=== PATIENT | female | born 1980 | race Caucasian/White ===

== ENCOUNTER 2016-05-12 20:43 | Day surgery (SDC) | payer OTHER ==
--- NOTE | 2016-05-12 21:02 | PDOC ---
History of Present Illness - General Chief Complaint: Pain Stated Complaint: ABDOMINAL PAIN Time Seen by Provider: 05/12/16 20:59 History Source: Patient Exam Limitations: No Limitations - History of Present Illness Initial Comments: 05/12/16 21:57 This is a 35-year-old female who comes in complaining of lower abdominal pain constant and not progressive now 3 days. Patient denies any fevers or chills with it. Patient had a sore throat and upper respiratory tract symptoms earlier in the week for which she saw her primary care doctor and had a rapid strep done. The primary care doctor did not address the abdominal pain issues as per patient. Patient denies any vaginal discharge. She is sexually active has been with her partner for 10 years and denies any history of sexually transmitted diseases. Patient denies any dysuria, frequency, hematuria or flank pain. Patient said the pain is primarily suprapubic area with some radiation to the right lower quadrant area. Patient said last menstrual period was a little heavier than usual and otherwise was on time and earlier this month. Patient denies any nausea, vomiting or diarrhea. Patient does have some mild anorexia. PAST MEDICAL HISTORY: no significant history PAST SURGICAL HISTORY: no significant history FAMILY HISTORY: no pertinant history SOCIAL HISTORY: Pt lives with family and is employed. MEDICATIONS: reviewed ALLERGIES: As per nursing notes Review of Systems General: No fevers or chills, no weakness, no weight loss HEENT: No change in vision. No sore throat,. No ear pain CardioVascular: No chest pain or shortness of breath Respiratory:No cough, or wheezing. Gastrointestinal: no nausea, vomitting, diarrhea or constipation, No rectal bleeding Genitourinary: No dysuria, hematuria, or frequency Musculoskeletal: No joint or muscle pain or swelling Neurologic: No headache, vertigo, dizziness or loss of consciousness Psychiatric: nor depression Skin: No rashes or easy bruising Endocrine: no increased thirst or abnormal weight change Allergic: no skin or latex allergy All other systems reviewed and normal Exam: General: Well-nourished well-developed individual, no acute distress HEENT: Throat: Normal, tonsils normal, no erythema or exudate Neck: Supple, no meningeal signs, no lymphadenopathy Eyes::Pupils equal reactive and round, extraocular motion intact Chest: Nontender to palpation Cardiac: S1-S2 normal, regular rate and rhythm, no murmurs rubs or gallops Respiratory: Lungs clear to auscultation bilateral Abdomen: Abdomen soft with normal bowel sounds, there is some mild to moderate tenderness over the suprapubic and right lower quadrant area. There is no guarding or rebound. Bowel sounds are normal. Extremities: Warm, dry, no cyanosis, clubbing, or edema Skin: No rashes Neuro: Alert and oriented x3, nonfocal exam, grossly intact, normal gait Psych: Normal mood and affect 05/13/16 00:43 CT scan consistent with acute appendicitis. Assessment and plan: This is a 35-year-old female who comes in with abdominal pain constant for 4 days. Patient had a workup in the emergency room including a CAT scan. Patient CAT scan was positive for acute appendicitis. Dr. Villatoro was contacted and he will admit patient and take her to the OR in the morning. Patient was given Zosyn in the emergency room. 05/13/16 01:32 Past History - Past Medical History Allergies/Adverse Reactions: Allergies Allergy/AdvReac Type Severity Reaction Status Date / Time No Known Allergies Allergy Verified 09/28/15 00:03 Home Medications: Ambulatory Orders Multivitamins [Tab-A-Vit -] 1 tab PO DAILY 05/12/16 Kidney Stones: Yes - Psycho/Social/Smoking Cessation Hx Anxiety: No Suicidal Ideation: No Smoking History: Never smoked Have you smoked in the past 12 months: No Hx Alcohol Use: No Drug/Substance Use Hx: No Substance Use Type: None *Physical Exam - Vital Signs Last Vital Signs Temp Pulse Resp BP Pulse Ox 98.1 F 114 H 16 132/81 100 05/12/16 20:45 05/12/16 20:45 05/12/16 20:45 05/12/16 20:45 05/12/16 20:45 ED Treatment Course - LABORATORY CBC & Chemistry Diagram: 05/12/16 21:26 05/12/16 21:26 *DC/Admit/Observation/Transfer Diagnosis at time of Disposition: Acute appendicitis Qualifiers: Acute appendicitis type: unspecified acute appendicitis type Qualified Code(s) : K35.80 - Unspecified acute appendicitis - Discharge Dispostion Condition at time of disposition: Stable Admit: Yes
[2016-05-12 21:33] LABS: URINE APPEARANCE Clear; URINE BILIRUBIN Negative (NEGATIVE); URINE GLUCOSE (UA) Negative (NEGATIVE); URINE KETONE 2+ (NEGATIVE); URINE LEUK ESTERASE Negative (NEGATIVE); URINE NITRITE Negative (NEGATIVE); URINE PROTEIN Negative (NEGATIVE); URINE UROBILINOGEN 0.2 E.U/dl (0.2-1.0)
[2016-05-12 21:35] LABS: URINE BLOOD 1+ (NEGATIVE); URINE COLOR YELLOW
[2016-05-12 21:38] LABS: BASOPHIL 0.4 % (0-2.0); EOSINOPHIL 0.3 % (0-4.5); MCH 29.9 pg (25.7-33.7); MCHC 33.6 g/dl (32.0-36.0); MEAN CELL VOLUME 89.2 fl (80-96); MEAN PLT VOLUME 7.6 fl (7.5-11.1); NEUTROPHILS 79.5 % (42.8-82.8); PLATELET COUNT 178 K/MM3 (134-434); RDW 12.2 % (11.6-15.6); WHITE BLOOD COUNT 13.6 K/mm3 (4.0-10.0)
[2016-05-12 21:52] LABS: ALK PHOS 61 U/L (32-92); ANION GAP 11 (8-16); BILIRUBIN,TOTAL 1.2 mg/dl (0.2-1.0); CALCIUM 9.2 mg/dl (8.4-10.2); CO2 26 mmol/L (22-28); CREATININE 0.5 mg/dl (0.6-1.3); GLUCOSE,RANDOM 95 mg/dl (74-106); SGOT/AST 16 U/L (10-42); TOT PROT 6.9 g/dl (6.4-8.3)
[2016-05-12 22:04] LABS: SGPT/ALT 10 U/L (10-40)
[2016-05-12 23:26] LABS: PH,URINE 5.5 (4.5-8)
[2016-05-13] MEDS ORDERED: PIPERACILLIN/TAZOB 3.375 GM/50 ML PRE-DOCKED IV STA (00:45)
[2016-05-13] MEDS ORDERED: PIPERACILLIN/TAZOBACTAM 3.375 GM VIAL IVPB ONE (00:49)
[2016-05-13 03:51] VITALS: BMI 21.4
--- NOTE | 2016-05-13 07:33 | HP ---
Admitting History and Physical - Admission Chief Complaint: ABD pain x3 days. History of Present Illness: This is a 35-year-old female who comes in c/o lower abd pain 3 days. First started around her umbilicus and has migrated to [place]. She states she was recently seen by her PCP for a sore throat & URI. Admits to loss of appetite. A CT scan was performed in the ED and confirms acute appy. Denies n/v/f/c/d, CP, SOB or trauma. History Source: Patient Limitations to Obtaining History: No Limitations - Past Medical History ...LMP Comment: 05/04/16 ...: No (HAVE 1 Y/O CHILD) - Past Surgical History Past Surgical History: Yes: Stent (Right ureter secondary to stone in 2010) - Smoking History Smoking history: Never smoked Have you smoked in the past 12 months: No - Alcohol/Substance Use Hx Alcohol Use: No - Social History Usual Living Arrangement: Yes: With Spouse ADL: Independent History of Recent Travel: No Home Medications - Allergies Allergies/Adverse Reactions: Allergies Allergy/AdvReac Type Severity Reaction Status Date / Time No Known Allergies Allergy Verified 09/28/15 00:03 - Home Medications Home Medications: Ambulatory Orders Multivitamins [Tab-A-Vit -] 1 tab PO DAILY 05/12/16 Family Disease History - Family Disease History Family History: Denies Review of Systems - Review of Systems Constitutional: reports: No Symptoms Eyes: reports: No Symptoms HENT: reports: No Symptoms Neck: reports: No Symptoms Cardiovascular: denies: Chest Pain, Edema, Palpitations, Shortness of Breath Respiratory: denies: Cough, Hemoptysis, SOB, Wheezing Gastrointestinal: reports: Abdominal Pain. denies: Diarrhea, Melena, Nausea, Vomiting Genitourinary: denies: Burning, Discharge, Dysuria, Flank Pain, Hematuria, Pain Breasts: reports: No Symptoms Reported Musculoskeletal: reports: No Symptoms Integumentary: reports: No Symptoms Neurological: reports: No Symptoms Endocrine: reports: No Symptoms Hematology/Lymphatic: reports: No Symptoms Psychiatric: reports: No Symptoms Physical Examination Vital Signs: Vital Signs Temperature 97.4 F L 05/13/16 03:33 Pulse Rate 97 H 05/13/16 03:33 Respiratory Rate 18 05/13/16 03:33 Blood Pressure 103/60 05/13/16 03:33 O2 Sat by Pulse Oximetry (%) 99 05/13/16 03:33 Constitutional: Yes: Well Nourished, No Distress, Calm Eyes: Yes: WNL, Conjunctiva Clear, EOM Intact HENT: Yes: Atraumatic, Normocephalic Neck: Yes: Supple, Trachea Midline Cardiovascular: Yes: Regular Rate and Rhythm Respiratory: Yes: Regular, CTA Bilaterally Gastrointestinal: Yes: Tenderness, Rebound (McBurney's point. Negative rovsing/ obturator/psoas signs). No: Palpable Mass, Pulsatile Mass ...Rectal Exam: Yes: Deferred Renal/: Yes: WNL Breast(s): Yes: WNL Musculoskeletal: Yes: WNL Extremities: Yes: WNL Edema: No Peripheral Pulses WNL: Yes Peripheral Pulses: Left Radial: 2+, Right Radial: 2+, Left Doralis Pedis: 2+, Right Dorsalis Pedis: 2+, Left Femoral: 2+, Right Femoral: 2+ Integumentary: Yes: WNL Neurological: Yes: WNL, Alert, Oriented ...Motor Strength: WNL Psychiatric: Yes: WNL Imaging - Results Cat Scan: Report Reviewed, Image Reviewed Problem List - Problems (1) Acute appendicitis Assessment/Plan: NPO/IVF GI/DVT ppx Early aggressive mobilization Consent for OR in chart Lap Appy/possible open at 12pm today Above discussed with Dr. Villatoro and agrees. Code(s): K35.80 - UNSPECIFIED ACUTE APPENDICITIS Qualifiers: Acute appendicitis type: unspecified acute appendicitis type Qualified Code(s): K35.80 - Unspecified acute appendicitis
[2016-05-13] MEDS ORDERED: SODIUM CHLORIDE 1,000 ML IV SCH ×2 (07:45→14:24)
[2016-05-13 09:34] LABS: INR 1.11 (0.82-1.09); PROTHROMBIN TIME (PATIENT) 12.4 SEC (10.2-13.0)
[2016-05-13] MEDS ORDERED: BUPIVACAINE HCL/PF 0.5% (5MG/ML) 10 ML VIAL ONE (10:56)
[2016-05-13] MEDS ORDERED: ROCURONIUM BROMIDE 50 MG/5 ML VIAL ONE (12:02)
[2016-05-13] MEDS ORDERED: PROPOFOL 20 ML ONE (12:02)
[2016-05-13] MEDS ORDERED: GLYCOPYRROLATE 0.2 MG/1 ML VIAL ONE (12:27)
[2016-05-13] MEDS ORDERED: ONDANSETRON 4 MG/2 ML VIAL ONE (12:52)
[2016-05-13] MEDS ORDERED: DEXAMETHASONE SOD PHOSPHATE 4 MG/1 ML VIAL ONE (12:52)
[2016-05-13] MEDS ORDERED: BUPIVACAINE HCL/PF 0.5% (5MG/ML) 10 ML VIAL IJ ONE (13:07)
[2016-05-13] MEDS ORDERED: LACTATED RINGERS SOLUTION 1,000 ML IV SCH ×2 (13:45→15:15)
--- NOTE | 2016-05-13 13:50 | OP ---
Operative Note - Note: Operative Date: 05/13/16 Pre-Operative Diagnosis: Acute appendicitis Operation: Laparoscopic appendectomy Post-Operative Diagnosis: Same as Pre-op Surgeon: Oz Villatoro Audiovisual Tech: Alejandro Mcnari Anesthesiologist/CEMENTING MACHINE OPERATOR: Alicja Palomo Anesthesia: General Specimens Removed: appendix Estimated Blood Loss (mls): 10 Fluid Volume Replaced (mls): 800
--- NOTE | 2016-05-13 13:51 | SURG ---
Surgery Firebrick And Refractory Tile Repairer Note Firebrick And Refractory Tile Repairer: Alejandro Mcnair PA-C Date of Service: 05/13/16 Diagnosis: Acute appendicitis Procedure: Laparoscopic appendectomy I was present for the entirety of the operative procedure. For further detail, please refer to operative report. Visit type - Case Type Case Type: ED Admission - Emergency Emergency Visit: Yes Care time: The patient presented to the Emergency Department on the above date and was hospitalized for further evaluation of their emergent condition. - New patient This patient is new to me today: Yes Date on this admission: 05/13/16
[2016-05-13] MEDS ORDERED: ACETAMINOPHEN 1000 MG/100 ML VIAL (NON FORMULARY) IVPB ONE (13:53)
[2016-05-13] MEDS ORDERED: PROMETHAZINE HCL 25 MG/1 ML VIAL IVPUSH ONE (13:56)
[2016-05-13] MEDS ORDERED: ONDANSETRON 4 MG/2 ML VIAL IVPUSH PRN ×2 (14:17→15:05)
[2016-05-13] MEDS ORDERED: oxyCODONE HCL 5 MG TABLET PO PRN ×2 (14:17→15:05)
[2016-05-14 05:43] VITALS: BP 114/59; PULSE 86; TEMP 98.6
--- NOTE | 2016-05-14 09:16 | DS ---
Physical Examination Vital Signs: Vital Signs Temperature 98.6 F 05/14/16 05:42 Pulse Rate 86 05/14/16 05:42 Respiratory Rate 18 05/14/16 05:42 Blood Pressure 114/59 05/14/16 05:42 O2 Sat by Pulse Oximetry (%) 100 05/13/16 21:00 Wound/Incision: Yes: Steri Strips (abdomen soft flat; tolerating diet and stable for discharge) Labs: CBC, BMP 05/12/16 21:26 05/12/16 21:26 Discharge Summary Reason For Visit: ACUTE APPENDICITIS Current Active Problems Acute appendicitis (Acute) Condition: Stable - Instructions Diet, Activity, Other Instructions: Dr Villatoro's Discharge Instructions Dear Jessica, Post Operative Instructions Physical activity Resume your normal everyday activity as tolerated no heavy lifting or exercise until seen by your surgeon. You may walk unlimited go of and climb stairs. You may resume driving the car when you feel safe and comfortable behind the wheel. Wound care If you have a bandage, leave it on, and keep dry for 48-72 hours. After that time discard the outer bandage. If there are tapes on the skin under the outer bandage, leave them in place. They will peel off in the next 7 to 10 days. Do Not Peel them off. You may shower the day after surgery. If there are tapes present on the skin, you may shower over them. Diet There are no dietary restrictions. Eat healthy, high-fiber foods. Drink 6 to 8 glasses of liquid each day. This will assist in keeping your bowels are regular. Pain management Because you are still breast-pumping, it is advised to use only TYLENOL. Using a narcotic such as Percocet or Tylenol with codeine can cross into breastmilk thus having adverse affect on your baby ie CEMENT GUN OPERATOR depression. Call Dr. Villatoro for any of the following: Severe pain not relieved by medication Fever of 101 or higher Excessive bleeding or drainage on dressing Inability to urinate Call the office for an appointment in seven days. Referrals: Jessica Aguilar [Primary Care Provider] - Oz Villatoro MD [Staff Physician] - - Home Medications Comprehensive Discharge Medication List: Ambulatory Orders Multivitamins [Tab-A-Vit -] 1 tab PO DAILY 05/12/16 Acetaminophen [Tylenol -] 500 mg PO Q6H #100 tablet 05/14/16 Multivitamins [Multivit ([facility] Formulary)] 1 tab PO DAILY tab 05/14/16 This patient is new to me today: No Emergency Visit: Yes Care time: The patient presented to the Emergency Department on the above date and was hospitalized for further evaluation of their emergent condition. Critical Care patient: No - Discharge Referral Referred to [facility] Med P.C.: No
[2016-05-14] MEDS ORDERED: MULTIVITAMINS (DAILY MVI) TABLET (FP) PO SCH (10:00)
--- NOTE | 2016-05-16 11:49 | OP ---
DATE OF OPERATION: 05/13/2016 PROCEDURE: Laparoscopic appendectomy PREOPERATIVE DIAGNOSIS: Acute appendicitis POSTOPERATIVE DIAGNOSIS: Acute appendicitis SURGEON: Oz Villatoro MD SAS ETL DEVELOPER: Alejandro Mcnair PA-C ANESTHESIA: General OPERATIVE FINDINGS: There was acute suppurative appendicitis. The rest of the findings are unremarkable. PROCEDURE: The patient was placed on the operating room table in supine position, and after the induction of general anesthesia the patient's abdomen was prepped with ChloraPrep and draped in sterile fashion. A time-out was taken and then pneumoperitoneum established using a Veress needle above the umbilicus to a pressure of 50 mmHg. A 5-mm port was placed and laparoscopy carried out, and the previously-noted findings were observed. A suprapubic 12-mm and left lower quadrant 5-mm port were placed, and the appendix was identified and grasped and put on traction. The mesoappendix was bluntly dissected and then divided using the ligature. Once the mesoappendix was completely divided, a 45-mm blue Endo CHEN stapler was placed across the base of the appendix and fired. There was no evidence of bleeding from the appendiceal stump. The appendix was placed in an EndoCatch and brought up against the abdominal wall, and suction carried out to remove some free fluid in the pelvis. Hemostasis was checked for and noted to be good, and then the appendix was brought out through the suprapubic port. Pneumoperitoneum was re-established. Again hemostasis was verified, and then all ports were removed under laparoscopic vision without evidence of bleeding from the port sites. The defect in the 12-mm port site was closed with a single figure-of-8 0 Vicryl suture. Port sites were infiltrated with 0.5% Marcaine, then the skin edges re-approximated with 4-0 Biosyn in a subcuticular fashion followed by Steri-Strips and Band-Aid dressings. The patient was then aroused from general anesthesia and transferred to the post-anesthesia care unit in stable condition, awake and alert. ESTIMATED BLOOD LOSS: 10 mL FLUID REPLACEMENT: Crystalloid. DRAINS: None SPECIMEN: Appendix to pathology I, Oz Villatoro, was physically present in the operating room from the time the patient was placed on the operating room table until she was transferred to the post-anesthesia care. MD CLINT Patel/[id number]
--- NOTE | 2016-05-17 13:19 | PATH ---
Surgical Pathology Report Patient Name: ARABELLA GUTIERREZ [facility]. Rec. #: [id number] /Age/Gender: 1980 (Age: 35) / F Account: [id number] Location: [facility] AMBUL[facility]ORY Taken: 05/13/2016 Received: 05/13/2016 Reported: 05/17/2016 Physicians: Oz Villatoro MD Specimen(s) Received APPENDIX Clinical History Acute appendicitis Final Diagnosis APPENDIX, APPENDECTOMY: ACUTE APPENDICITIS. Electronically Signed Tej Garza M.D. Gross Description Received in formalin, labeled "appendix," is a 4 cm. in length vermiform appendix with a stapled margin of resection and moderate attached fat. The serosa is myers-avelar and smooth. Sectioning reveals a focally hemorrhagic appearing lumen. The wall of the appendix averages 0.2 cm. in thickness. Sharepoint Developer sections are submitted in one cassette. 05/16/201605/16/2016
== END 2016-05-14 09:23 | disposition home or self-care (01) ==
LOC: FER 20:43 → UNDOADMIN 05-13 01:38 → FM/S 05-13 01:38 → FASU 05-13 12:08 → FM/S 05-13 12:09 → FASU 05-14 09:23
PROVIDERS: ATTEND Physician Assistant Surgical
PROC: 0DTJ4ZZ Resection of Appendix, Percutaneous Endoscopic Approach (ICD-10-PCS; principal; 2016-05-13 12:00)
DX: K35.80 Unspecified acute appendicitis (principal)
CPT/HCPCS: 36415; 74177-TC; 80053; 81003; 84703; 85025; 85610; 86850; 86900; 86901; 88304-TC; 94760; 99285-25